=== PATIENT | male | born 1990 | race Caucasian/White ===

== ENCOUNTER 2023-10-14 09:46 | Outpatient (AMB) | payer BC, MEDICAID, SELFPAY ==
--- NOTE | 2023-10-14 09:49 | MHC.PC.OV ---
Vital Signs 10/14/23 09:50 Height 5 ft 10 in Weight 180 lb BMI 25.8 BP 106/66 Blood Pressure Location Lt brachial Position Sitting Respiration 12 Pulse 74 Pulse Source Pulse Oximeter Pulse Oximetry (%) 98 Oxygen Delivery Method Room Air Intake Visit Reasons: New patient-req physical Intake Note: Patient is here to establish care. Patient reports he would like a referral for a vasectomy. Patient reports he has allergies and would like allergy testing. Patient reports he is unsure if he has asthma and would like to see if there is a test for this as well. First Coat Operator Required: No Allergies No Known Allergies Allergy (Verified 10/14/23 09:55) Tobacco use date assessed: 10/14/23 Dental Screening Dental Screen Date: 10/14/23 Did you have a dental visit in the last 12 months?: No Did you have a dental problem in the last 6 months where you did not have access to dental care?: No Was dental information given to patient?: Yes HPI New patient-req physical HPI Details New patient Prior PCP:?Nhi Lobato Last office visit/CPE: 1 year Acute issue(s): Referral for vasectomy Allergies Wheeze -Notes he usually gets bronchitis every year. PMHx: Allergies, Anxiety, Hand Tremors SurgHx: None FHx: Mom: Healthy. Dad: Healthy. SocHx: Nonsmoker. EtOH Infreq. No drugs. PFSH Medical History (Updated 10/14/23 @ 11:00 by Will Terry) Depression Anxiety Tremor of both hands Sinusitis Social History (Updated 10/14/23 @ 09:59 by Stephany Jones [facility]) Household Members: Spouse and Children Household Members Other:: 5 kids 3 girls 2 boys Housing: Apartment Are you a primary caretaker grounds to a significant other at home: No Do you presently have visiting nurse or other home services: No 75 years or older and lives alone: No Alcohol intake: never Patient Tobacco Use Status: Never used Tobacco e-Cigarette/Vaping Use: Never Used Use of substances other than those prescribed or required for medical reasons: No Have you been hit, kicked, punched, or otherwise hurt by someone within the past year? 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 1. Little interest or pleasure in doing things: not at all 2. Feeling down, depressed, or hopeless: several days 3. Trouble falling or staying asleep, or sleeping too much: several days 4. Feeling tired or having little energy: not at all 5. Poor appetite or overeating: not at all 6. Feeling bad about yourself - or that you are a failure or have let yourself or your family down: not at all 7. Trouble concentrating on things, such as reading the newspaper or watching television: not at all 8. Moving or speaking so slowly that other people could have noticed. Or the opposite - being so fidgety or restless that you have been moving around a lot more than usual: not at all 9. Thoughts that you would be better off or of hurting yourself in some way: not at all Total score: 2 Depression Screening Interpretation: Negative Depression Screening Done: Yes 62453 - PHQ-9 Billing: Yes Source: Developed by Drs. Jean-Claude Paige, Kiarra Bacon, Ludin Dow and colleagues, with an educational melida from [employer]. Thrive Questionnaire Date Thrive assessed: 10/14/23 I am a: Patient What is your living situation today?: I have a steady place to live Within the past 12 months, did the food you bought not last and you didn't have the money to get more?: Sometimes True Within the past 12 months, did you worry whether your food would run out before you got money to buy more?: Sometimes True Do you have trouble paying for medicines?: No Do you have trouble getting transportation to medical appointments?: No Do you have trouble paying your heating and electricity bill?: No Do you have trouble taking care of your child, family member or friend?: No Do you have trouble with day-to-day activities such as bathing, preparing meals, shopping, managing finances, etc.?: No Are you currently unemployed and looking for a job?: No Are you interested in more education?: No Please select the resources that you would like help with: None Currently or been in a relationship where the following occur: no concerns reported AUDIT C Alcohol Use Questionnaire (AUDIT-C) 1. How often do you have a drink containing alcohol?: Never 3. How often do you have six or more drinks on one occasion?: Never Total Score: 0 KERRI-7 AMB Questionnaire KERRI-7 Date KERRI - 7 assessed: 10/14/23 Feeling nervous, anxious, or on edge: 1 = Several days Not being able to stop or control worryin = Not at all Worrying too much about different things: 0 = Not at all Trouble relaxin = Several days Being so restless that it is hard to sit still: 0 = Not at all Becoming easily annoyed or irritable: 1 = Several days Feeling afraid as if something awful might happen: 0 = Not at all Total KERRI-7 score (0-4 normal; 5-9 mild; 10-14 moderate; 15-21 severe): 3 Source: Developed by Drs. Jean-Claude Paige, Kiarra Bacon, Ludin Dow and colleagues, with an educational melida from [employer]. KERRI-7 Assessment Billing KERRI-7 Assessment Tool: KERRI-7 Assessment 53672 Review of Systems Const Denies chills, Denies fatigue, Denies fever(s), Denies headache(s) and Denies weakness ENT Denies dizziness and Denies headache(s) Card Denies chest pain, Denies lightheadedness, Denies dyspnea and Denies other (Palpitations) Resp Denies cough, Denies dyspnea, Denies wheezing and Denies other ( shortness of breath) Musc Denies numbness and Denies tingling Neuro Denies dizziness, Denies headache(s), Denies numbness, Denies tingling, Denies paresthesias and Denies weakness Psych Denies anxiety and Denies depression Endo Denies fatigue Aller/Immun Denies wheezing Physical exam (Primary Care) Vital Signs: Last Vital Signs Pulse 74 10/14/23 09:50 Resp 12 10/14/23 09:50 BP 106/66 10/14/23 09:50 Pulse Ox 98 10/14/23 09:50 Oxygen Delivery Method Room Air 10/14/23 09:50 BMI result Body Mass Index 25.8 Tobacco/Smoking Status: Tobacco use Status Tobacco use date assessed 10/14/23 10/14/23 10:03 Patient Tobacco Use Status Never used Tobacco 10/14/23 10:03 e-Cigarette/Vaping Use Never Used 10/14/23 10:03 PHQ-9: PHQ-9 Score PHQ-9: Total score 2 10/14/23 10:51 Depression Screening Interpretation: Negative Thrive Assessment: Date of Thrive Assessment Date Thrive assessed 10/14/23 10/14/23 10:03 Currently or been in a relationship where the following occur: no concerns reported Const General: no acute distress and well developed Nutritional Appearance: well nourished Orientation/consciousness: patient oriented x3 HENMT Head: Yes normocephalic and Yes atraumatic Eyes General: appearance normal, both eyes and all related structures Pupils: Equal, round and reactive pupils present EOM: EOMs intact bilaterally Resp Effort & Inspection: normal respiratory effort Auscultation: clear to auscultation bilaterally Cardio Rate: regular rate Rhythm: regular rhythm Heart sounds: S1 normal heart sound present, S2 normal heart sound present, no gallops, no murmurs and no rubs Neuro General: patient oriented x3 and gait normal Cranial nerves: Yes Equal, round and reactive pupils present Psych Affect: normal affect Assessment and Plan Assessment & Plan (1) Allergies: Code(s): T78.40XA - Allergy, unspecified, initial encounter Plan: Referred?to?immunology?for?allergy?testing?and?consideration?of?immunotherapy (2) Family planning: Code(s): Z30.09 - Encounter for other general counseling and advice on contraception Plan: Referred?to?Urology?for?consult?on?vasectomy (3) Wheeze: Code(s): R06.2 - Wheezing Plan: Lungs?are?clear?today Referred?for?pulmonary?function?testing (4) Depression with anxiety: Code(s): F41.8 - Other specified anxiety disorders Plan: History?of?depression/anxiety.??Currently?stable?and?not?on?medications. (5) Tremor of both hands: Code(s): R25.1 - Tremor, unspecified Plan: No?current?tremor Had?been?on?propranolol?and?atenolol?in?the?past. He?notes?that?atenolol?had?cause?depression?to?worsen. (6) Laboratory exam ordered as part of routine general medical examination: Code(s): Z00.00 - Encounter for general adult medical examination without abnormal findings Plan: Check?lab Orders: Orders TSH reflex Free T4 Today Z00.00 - Encounter for general adult medical examination without abnormal findings Comprehensive [place]. Panel Fast Today Z00.00 - Encounter for general adult medical examination without abnormal findings Lipid Panel Today Z00.00 - Encounter for general adult medical examination without abnormal findings Complete Blood Count Auto Diff Today Z00.00 - Encounter for general adult medical examination without abnormal findings Microalbumin, Random (w Creat) Today I10 - Essential (primary) hypertension UA and rflx microscopic Today Z00.00 - Encounter for general adult medical examination without abnormal findings PFT pulmonary function test Today R06.2 - Wheezing Referrals Allergy & Immunology Referral T78.40XA - Allergy, unspecified, initial encounter Urology Referral Z30.09 - Encounter for other general counseling and advice on contraception Coding Level of Care Code New Pt Level 3 (15265) Diagnoses Allergies T78.40XA Family planning Z30.09 Wheeze R06.2 Depression with anxiety F41.8 Tremor of both hands R25.1 Laboratory exam ordered as part of routine general medical examination Z00.00 Additional Codes KERRI-7 Assessment Billing - KERRI-7 Assessment Tool: KERRI-7 Assessment 90985 ([id number])
[2023-10-14 09:50] VITALS: BP 106/66; PULSE 74; RESP 12; O2SAT 98; BMI 25.8
== END 2023-10-14 11:08 | disposition home or self-care (01) ==
PROVIDERS: PCP Family Medicine; Visit Provider Family Medicine
DX: R06.2 Wheezing (principal); T78.40XA Allergy, unspecified, initial encounter; Z30.09 Encounter for other general counseling and advice on contraception; F41.8 Other specified anxiety disorders; R25.1 Tremor, unspecified
CPT/HCPCS: 99203

== ENCOUNTER 2023-10-14 11:11 | Outpatient (REF) | payer BC, SELFPAY ==
[2023-10-14 13:58] LABS: MANUAL DIFF FLAG NO
[2023-10-14 14:06] LABS: Basophils Percent Auto 0.6 % (0-2); Eosinophils Absolute Auto 0.3 X10*3/uL (0.0-0.4); Eosinophils Percent Auto 4.8 % (0-4); Hematocrit 45.4 % (42.0-52.0); Hemoglobin 14.9 g/dl (14.0-18.0); Imm Gran Abs Auto 0.02 X10*3/uL (0.00-0.03); Imm Gran Pct Auto 0.3 % (0.0-0.4); Lymphocytes Absolute Auto 1.9 X10*3/uL (1.2-4.9); Lymphocytes Percent Auto 26.9 % (20-40); Mean Corpuscular HGB Conc 32.8 g/dl (31.0-36.0); Mean Corpuscular Volume 82.2 fL (80.0-98.0); Mean Platelet Volume 10.2 fL (9.4-12.4); Monocytes Absolute Auto 0.5 X10*3/uL (0.1-1.2); Monocytes Percent Auto 6.9 % (2-11); Neutrophils Absolute Auto 4.3 x10*3/uL (2.0-8.3); Neutrophils Percent Auto 60.5 % (45-73); Platelet Count 233 X10*3/uL (160-400); Red Blood Count 5.52 X10*6/uL (4.60-5.80); Red Cell Distribution Width 13.4 % (11.0-16.0); White Blood Count 7.1 X10*3/uL (4.8-10.8)
[2023-10-14 14:15] LABS: Appearance Urine Clear; Color Urine Yellow; Glucose Urine UA Negative (Negative); Leukocyte Esterase Urine Negative (Negative); Nitrite Urine Negative (Negative); Urine Blood Negative (Negative); Urine Ketones Negative (Negative); Urine Protein Negative (Neg-Trace)
[2023-10-14 14:25] LABS: Alanine Aminotransferase 24 U/L (0-40); Albumin Level 4.5 g/dL (3.5-5.0); Alkaline Phosphatase 69 U/L (39-117); Anion Gap 11 (12-20); Aspartate Amino Transferase 19 U/L (5-37); Bilirubin Total 0.3 mg/dL (0.0-1.0); Blood Urea Nitrogen 20 mg/dL (9-16); Calcium 9.1 mg/dL (8.4-10.2); Carbon Dioxide 27 mmol/L (22-29); Chloride 107 mmol/L (96-108); Cholesterol 121 mg/dL (<200); Estimated Glomerular Filt Rate > 60; Glucose Fasting 100 mg/dL (60-99); HDL Cholesterol 47 mg/dL (>40); LDL Cholesterol Calculated 60 mg/dL (<100); Sodium 141 mmol/L (135-145); Total Protein 6.8 g/dL (6.5-8.0); Triglycerides 74 mg/dL (<150)
[2023-10-14 14:40] LABS: TSH reflex Free T4 0.89 uIU/mL (0.32-4.0)
[2023-10-14 14:47] LABS: Creatinine Urine 125.86 mg/dL; Microalbum/Creatinine Ratio Ur 8.7 ug/mg cr (<30)
[2023-10-15 03:46] LABS: Syphilis Screen Nonreactive (Nonreactive)
[2023-10-15 04:13] LABS: HBS Num1 155.05 mIU/mL (0-7.99); HBc Num1 0.06 S/CO (0.00-0.79); HBsAGNum1 0.27 S/CO (0.00-0.99); HIV AB/AG Nonreactive (Nonreactive); HIV Num 1 0.06 S/CO (0.00-0.99); Hepatitis B Core Antibody Nonreactive (Nonreactive); Hepatitis B Surface Antigen Negative (Negative); ~HepC Num1 0.08 S/CO (0.00-0.79); ~Hepatitis B Surface Antibody REACTIVE (Nonreactive); ~Hepatitis C Antibody Nonreactive (Nonreactive)
== END 2023-10-14 11:12 | disposition home or self-care (01) ==
LOC: HO.WFDLDS 11:11
PROVIDERS: Visit Provider Family Medicine
DX: Z00.00 Encounter for general adult medical examination without abnormal findings (principal); Z11.4 Encounter for screening for human immunodeficiency virus [HIV]; I10 Essential (primary) hypertension; Z20.2 Contact with and (suspected) exposure to infections with a predominantly sexual mode of transmission
CPT/HCPCS: 36415; 80053; 80061; 81003; 82043; 82570; 84443; 85025; 86704; 86706; 86780; 86803; 87340; 87389

== ENCOUNTER 2024-01-09 10:45 | Outpatient (AMB) | payer BC, SELFPAY ==
--- NOTE | 2024-01-09 10:50 | A.OFFVIS_ITS ---
Intake Intake Visit Reasons: Consult of vasectomy Intake Note: New Patient presents for initial visit for vasectomy consult Urology Medications: none Blood Thinner: none Children# 5 Expected Children# 0 Civil Litigation Attorney Required: No Accompanied by: Self / Same As Patient Allergies No Known Allergies Allergy (Verified 01/09/24 11:34) Medication List - Last Reconciled 01/09/24 by MARY Marshall No Known Home Meds HPI HPI Comments History of Present Illness Details Sal[place] is a pleasant 33-year-old male patient of Dr. Castro. He presents to the office today for - vasectomy evaluation Vasectomy evaluation The patient presents for vasectomy consultation.? He is currently He has fathered -?5 children with 1 single partner The youngest child is -oldest is 10 years old youngest is 1-year-old His partner is aware and permissive for a vasectomy Current form of control is condoms Current employment is [employer] The vasectomy may be complicated due to a history of no complicating issues. Patient education has been provided via AUA video, via printed information, risks of failure, recovery time, bruising and potential pain syndrome have been stressed Discussion today focused on the presence of vasectomy and the risks, benefits and alternatives that are available. Vasectomy as intended as a permanent form of control. Printed information and literature was provided to the patient. Overall there is a one in 2500 failure rate. This can occur at any time after vasectomy. Risks were discussed highlighting hematoma, spermatocele, epididymal congestion, development of sperm antibodies, and development of chronic pain estimated between 1-5%. The procedure was reviewed in detail. Anatomical diagrams of the male genitalia were used to explain the location of the vas deferens. The vas deferens will be transected, the proximal end will be cauterized, a metal clip would be applied to separate the 2 vas deferens ends. It was explained the procedure will be done in the office and takes approximately 10-15 minutes. Less common problems that arise with vasectomy include hematoma, bleeding, allergic reaction to anesthetic, epididymal infection, epididymal congestion, scrotal discomfort, spermatic leak, spermatic granuloma and the possibility of antisperm antibodies. He understands these risks and wishes to proceed. Consent was signed at the office today. He also understands that it takes 12 weeks for sperm to fully clear the system. He will need to provide a semen sample at 12 weeks and if this is not clear a 2nd sample at 16 weeks. Medical clearance to stop using protection will only be provided if he satisfies published criteria for sperm clearance. [facility] Medical History Staph infection Pneumonia Depression Anxiety Tremor of both hands Sinusitis Surgical History No pertinent past surgical history Family History Paternal Grandmother Asthma Maternal Grandmother Thyroid disease Paternal Grandfather Alcoholism Lung cancer Social History Household Members: Spouse and Children Household Members Other:: 5 kids 3 girls 2 boys Housing: Apartment Are you a primary post acute care nurse practitioner to a significant other at home: No Do you presently have visiting nurse or other home services: No 75 years or older and lives alone: No Alcohol intake: never Patient Tobacco Use Status: Never used Tobacco e-Cigarette/Vaping Use: Never Used service: No Current occupational status: employed 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 Current occupational exposures/hazards: No Sexual orientation: Straight/Heterosexual Gender identity: Male Cognitive needs: No Hearing needs: No Vision needs: No Review of Systems Const All systems reviewed & are unremarkable except as noted in HPI and below Physical Exam Const General: cooperative, comfortable, no acute distress, well developed, alert and awake Orientation/consciousness: patient oriented x3 HEENT Head: Yes normal to inspection, Yes normocephalic and Yes atraumatic Ears: hearing grossly normal bilaterally Eyes General: appearance normal, both eyes and all related structures Neck Neck: Yes normal visual inspection and Yes trachea midline Chest Chest palpation & inspection: normal inspection of the chest Resp Effort & Inspection: normal respiratory effort and able to speak in complete sentences Cardio Rate: regular rate GI Inspection: Yes normal to inspection General: Yes no CVA tenderness Male General Exam: Yes normal external exam Penis: normal penis and circumcised Meatus: meatus normal Scrotum: scrotum normal Testes: Testes normal Back/Spine/Pelvis Back: no CVA tenderness Skin General skin exam: no rashes or lesions noted Neuro General: patient oriented x3 Extrem General: Yes normal to inspection Psych Appearance: grossly normal and well kempt Mental Status: mental status grossly normal Speech and movement: Normal speech and movement present and Clear speech present Affect: normal affect Attitude: cooperative Thought process: Normal thought process present Thought content: Normal thought content present Results AMB Urinalysis, Automated UA Leukoctes 0 Galina/uL Last Edit by [employer] on 01/09/24 11:13 UA Nitrite Negative Last Edit by [employer] on 01/09/24 11:13 UA Urobilinogen 0.2 mg/dL Last Edit by [employer] on 01/09/24 11:13 UA Protein 15 mg/dL Last Edit by [employer] on 01/09/24 11:13 UA pH 6.0 Last Edit by [employer] on 01/09/24 11:13 UA Blood 0 Lamonte/uL Last Edit by [employer] on 01/09/24 11:13 UA Specific Leedey 1.020 Last Edit by [employer] on 01/09/24 11:13 UA Ketone Negative Last Edit by [employer] on 01/09/24 11:13 UA Bilirubin 0 mg/dL Last Edit by [employer] on 01/09/24 11:13 UA Glucose 0 mg/dL Last Edit by [employer] on 01/09/24 11:13 Results Reviewed Results Reviewed: Laboratory Last Values Urine pH (Auto) 6.0 01/09/24 11:11 Specific [place] (Auto) 1.020 01/09/24 11:11 Urine Protein (Auto) 15 mg/dL 01/09/24 11:11 Glucose (UA)(Auto) 0 mg/dL 01/09/24 11:11 Urine Ketones (Auto) Negative 01/09/24 11:11 Urine Blood (Auto) 0 Lamonte/uL 01/09/24 11:11 Urine Nitrite (Auto) Negative 01/09/24 11:11 Urine Bilirubin (Auto) 0 mg/dL 01/09/24 11:11 Urine Urobilinogen (Auto) 0.2 mg/dL 01/09/24 11:11 Leukocyte Esterase (Auto) 0 Galina/uL 01/09/24 11:11 Assessment & Plan Assessment & Plan (1) Anxiety about health: Code(s): R45.89 - Other symptoms and signs involving emotional state (2) Vasectomy evaluation: Code(s): Z30.09 - Encounter for other general counseling and advice on contraception Plan In office urinalysis results reviewed with the patient today; as noted above. Discussed risks and benefits of vasectomy; as noted and outlined above. All questions were answered. Discussed options for semen analysis via fellow or in office assessment and evaluation. Prescriptions provided and discussed appropriate use Will schedule for vasectomy with Dr. Clifton Follow-up per doctor's orders; or sooner with any issues, concerns, and or questions. Orders: Orders AMB Urinalysis Automated Today Z13.9 - Encounter for screening, unspecified Medications: New 2 diazepam (Valium) take one tab when arrive for procedure 2 mg PO DAILY 2 tabs 0RF anxiety R45.89 - Other symptoms and signs involving emotional state acetaminophen-codeine 300-30 mg 1 tab PO Q8H 9 tabs 0RF 3 days R45.89 - Other symptoms and signs involving emotional state Patient Instructions: The patient had an opportunity to ask questions regarding the treatment plan. All questions were answered. Physical exam, labs, and imaging were discussed and reviewed in detail. As well as risks, benefits, and discussion of treatment choices. No major barriers to understanding were identified. The patient expressed understanding and agreement with the above treatment plan. The patient was made aware they should contact our office by phone for worsening of their current condition, the appearance of new symptoms, or with any questions or concerns. Compliance is encouraged with any medications and follow up testing that is ordered. It is a privilege to be allowed the opportunity to participate in? your urological care.? Again, if you have any questions or concerns If you have any questions or concerns please do not hesitate to contact me. The office is [phone]. This note is constructed using voice recognition software. While every effort has been made to ensure accuracy deputy editor in chief errors may have been included. Yours sincerely, MARY Marshall Coding Level of Care Code New Pt Level 4 (78805) Diagnoses Anxiety about health R45.89 Vasectomy evaluation Z30.09
== END 2024-01-09 11:23 | disposition home or self-care (01) ==
PROVIDERS: PCP Family Medicine; Visit Provider Nurse Practitioner Family
DX: R45.89 Other symptoms and signs involving emotional state (principal); Z30.09 Encounter for other general counseling and advice on contraception; Z13.9 Encounter for screening, unspecified
CPT/HCPCS: 99204

== ENCOUNTER → 2024-01-09 10:45 | Outpatient (BNVA) | payer BC, SELFPAY | PROVIDERS: PCP Family Medicine; Visit Provider Nurse Practitioner Family | DX: Z30.09 Encounter for other general counseling and advice on contraception (principal); F41.8 Other specified anxiety disorders | CPT/HCPCS: 81003 ==

== ENCOUNTER 2024-01-15 10:43 | Outpatient (AMB) | payer BC, SELFPAY ==
--- NOTE | 2024-01-15 10:45 | A.OFFPC_ITS ---
Vital Signs 01/15/24 10:46 Height 5 ft 10 in Weight 175 lb BMI 25.1 BP 110/60 Blood Pressure Location Lt brachial Position Sitting Pulse 69 Pulse Source Pulse Oximeter Pulse Oximetry (%) 97 Oxygen Delivery Method Room Air Intake Visit Reasons: CPE with f/u labs and health maint Intake Note: Patient is here today for his physical today, and follow up on labs. Allergies No Known Allergies Allergy (Verified 01/15/24 10:47) Medication List - Last Reconciled 01/15/24 by Efren Castro MD acetaminophen-codeine 300-30 mg 1 tab PO Q8H 3 days diazepam (Valium) 2 mg PO DAILY Tobacco use date assessed: 01/15/24 Dental Screening Dental Screen Date: 10/14/23 HPI CPE with f/u labs and health maint HPI Details 33 y/o male presents for a CPE with f/u labs. Labs were drawn 10/14/23. Reviewed labs with pt. Borderline elevated fasting glucose of 100. Triglycerides 74. TC 121. LDL 60. HDL 47. A1c today 01/15/24 5.9%. HPI Comments History of Present Illness Details Documentation assistance for Efren Castro MD, was provided by Will Terry,? Fiscal Specialist on 01/15/2024 11:39 AM EST. I, Dr. Castro, have read, observed, and verified documentation. PFSH Medical History Staph infection Pneumonia Depression Anxiety Tremor of both hands Sinusitis Surgical History No pertinent past surgical history Family History Paternal Grandmother Asthma Maternal Grandmother Thyroid disease Paternal Grandfather Alcoholism Lung cancer Social History Household Members: Spouse and Children Household Members Other:: 5 kids 3 girls 2 boys Housing: Apartment Are you a primary healthcare administrative assistant to a significant other at home: No Do you presently have visiting nurse or other home services: No 75 years or older and lives alone: No Alcohol intake: never Patient Tobacco Use Status: Never used Tobacco e-Cigarette/Vaping Use: Never Used service: No Current occupational status: employed 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 Jean-Claude Paige, Kiarra Bacon, Ludin Dow and colleagues, with an educational melida from [employer]. Review of Systems Const Denies chills, Denies fatigue, Denies fever(s), Denies headache(s) and Denies weakness Eyes Denies change in vision ENT Denies dizziness, Denies headache(s), Denies hearing loss, Denies nasal congestion, Denies sinus pain, Denies sinus pressure and Denies sore throat Card Denies chest pain, Denies lightheadedness, Denies dyspnea and Denies other (palpitations) Resp Denies cough, Denies dyspnea and Denies wheezing GI Denies abdominal pain, Denies melena, Denies hematochezia, Denies change in bowel habits, Denies dyspepsia and Denies nausea Denies hematuria and Denies dysuria Musc Denies abnormal gait, Denies myalgias, Denies arthralgias, Denies numbness and Denies tingling Skin/Breast Denies rash, Denies unusual bruising and Denies wounds Neuro Denies abnormal gait, Denies dizziness, Denies headache(s), Denies memory loss, Denies numbness, Denies Sensory deficit (Neuro), Denies tingling and Denies weakness Psych Denies anxiety, Denies depression and Denies memory loss Endo Denies cold intolerance, Denies fatigue, Denies heat intolerance, Denies polydipsia and Denies polyuria Lalo/Lymph Denies easy bleeding and Denies easy bruising Aller/Immun Denies wheezing Physical exam (Primary Care) Vital Signs: Last Vital Signs Pulse 69 01/15/24 10:46 BP 110/60 01/15/24 10:46 Pulse Ox 97 01/15/24 10:46 Oxygen Delivery Method Room Air 01/15/24 10:46 BMI result Body Mass Index 25.1 Tobacco/Smoking Status: Tobacco use Status Tobacco use date assessed 01/15/24 01/15/24 10:49 Patient Tobacco Use Status Never used Tobacco 01/15/24 10:46 e-Cigarette/Vaping Use Never Used 01/15/24 10:46 Thrive Assessment: Date of Thrive Assessment Date Thrive assessed 10/14/23 01/15/24 10:46 Const General: no acute distress, well developed, alert and awake Nutritional Appearance: well nourished Orientation/consciousness: patient oriented x3 HENMT Head: Yes normocephalic and Yes atraumatic Ears: hearing grossly normal bilaterally and TM's normal bilaterally General nose exam: Normal external nose present and Normal nares present Mouth: Normal oral and palatal mucosa present and moist mucous membranes Teeth and gingiva: dentition normal Throat: Yes posterior oropharynx normal Eyes General: appearance normal, both eyes and all related structures Pupils: Equal, round and reactive pupils present and Pupil accommodation reflex normal EOM: EOMs intact bilaterally Neck Neck: Yes normal visual inspection, Yes no lymphadenopathy and Yes trachea midline Thyroid: Thyroid normal Carotids: no bruits Lymphatic: no lymphadenopathy noted Chest Chest palpation & inspection: normal inspection of the chest Resp Effort & Inspection: normal respiratory effort Auscultation: clear to auscultation bilaterally Cardio Rate: regular rate Rhythm: regular rhythm Heart sounds: S1 normal heart sound present, S2 normal heart sound present, no gallops, no murmurs and no rubs Bruits: no abdominal aortic bruits and no carotid bruits GI Palpation (GI): No Abdominal aortic bruit present, Soft to palpation, nontender, No hepatosplenomegaly present and No Rebound tenderness present Auscultation: normal bowel sounds General: Yes no CVA tenderness Back/Spine/Pelvis Back: no CVA tenderness Cervical Spine: cervical ROM normal and No Cervical spine tenderness Thoracic/Lumbar Spine: thoraco-lumbar ROM normal, No pain with thoraco-lumbar ROM, No thoracic spinal tenderness and No lumbar spinal tenderness Skin Lesions: no lesions Rashes: no rashes Trauma: no lacerations or abrasions Wounds: no wounds Nails: normal Neuro General: patient oriented x3 Cranial nerves: Yes Equal, round and reactive pupils present Cognition (Neuro): normal cognition Gait exam (Neuro): Normal gait present Motor exam (neuro): 5/5 motor strength present throughout Sensory Exam: No Sensory deficit (Neuro) Deep tendon reflexes (DTR's): Right patellar reflex intensity grade: 2+ and Left patellar reflex intensity grade: 2+ Extrem General: Yes normal to inspection and No edema Psych Appearance: grossly normal Affect: normal affect Attitude: cooperative Thought process: Normal thought process present Assessment and Plan Assessment & Plan (1) Adult general medical exam: Code(s): Z00.00 - Encounter for general adult medical examination without abnormal findings Plan: 33-year-old?male?presents?for?complete?physical?exam Exam?today?was?within?normal?limits Encouraged?good?hydration,?healthy?diet?with?active ?lifestyle?and?plenty?of?exercise (2) Allergies: Code(s): T78.40XA - Allergy, unspecified, initial encounter Plan: Had?referred?patient?to?immunology?in?October.??Says?that?when?he?called?them?th ey?did?not?have?the?referral Asking?the?office?to?check?on?the?status?of?this?referral (3) Screening for STD (sexually transmitted disease): Code(s): Z11.3 - Encounter for screening for infections with a predominantly sexual mode of transmission Plan: STD/STI?testing?negative (4) Pre-diabetes: Code(s): R73.03 - Prediabetes Plan: A1c?5.9%; pre?diabetes?range Encouraged?a?diet?low?in?sugars?and?starches, encouraged?weight?control?and?exercise Will?follow-up?in?about?3?months Coding Level of Care Code Est Pt Level 3 (95058) Est Pt Prev Care 18-39y(30583) Diagnoses Adult general medical exam Z00.00 Allergies T78.40XA Screening for STD (sexually transmitted disease) Z11.3 Pre-diabetes R73.03
[2024-01-15 10:46] VITALS: BP 110/60; PULSE 69; O2SAT 97; BMI 25.1
== END 2024-01-15 11:58 | disposition home or self-care (01) ==
PROVIDERS: PCP Family Medicine; Visit Provider Family Medicine
DX: Z00.00 Encounter for general adult medical examination without abnormal findings (principal); T78.40XA Allergy, unspecified, initial encounter; Z11.3 Encounter for screening for infections with a predominantly sexual mode of transmission; R73.03 Prediabetes
CPT/HCPCS: 83036; 99213; 99395

== ENCOUNTER 2024-04-14 11:37 | Outpatient (AMB) | payer BC, SELFPAY ==
[2024-04-14 11:46] VITALS: BP 108/60; PULSE 80; RESP 14; TEMP 36.1; O2SAT 97; BMI 23.9
--- NOTE | 2024-04-14 11:46 | A.OFFPC_ITS ---
Vital Signs 04/14/24 11:46 Height 5 ft 10 in Weight 166 lb 8 oz BMI 23.9 BP 108/60 Blood Pressure Location Rt brachial Position Sitting Respiration 14 Pulse 80 Pulse Source Pulse Oximeter Temp 97 F Temp Source Temporal Artery Scan Pulse Oximetry (%) 97 Oxygen Delivery Method Room Air Intake Visit Reasons: f/u pre?diabetes Quality Assurance Coordinator Required: No Accompanied by: Self / Same As Patient Allergies No Known Allergies Allergy (Verified 04/14/24 11:54) Medication List - Last Reconciled 04/14/24 by Efren Castro MD No Known Home Meds Tobacco use date assessed: 01/15/24 Dental Screening Dental Screen Date: 10/14/23 HPI f/u pre?diabetes HPI Details 33 y/o male presents to f/u pre-diabetes . Last A1c 01/15/24 5.9%. Had encouraged diet low in sugars and starches. A1c today 04/14/24 is 5.8%. Has lost some weight since last office visit in January. Pt notes he walks every day. PFSH Medical History Staph infection Pneumonia Depression Anxiety Tremor of both hands Sinusitis Surgical History No pertinent past surgical history Family History Paternal Grandmother Asthma Maternal Grandmother Thyroid disease Paternal Grandfather Alcoholism Lung cancer Social History Household Members: Spouse and Children Household Members Other:: 5 kids 3 girls 2 boys Housing: Apartment Are you a primary day care teacher to a significant other at home: No Do you presently have visiting nurse or other home services: No 75 years or older and lives alone: No Alcohol intake: never Patient Tobacco Use Status: Never used Tobacco e-Cigarette/Vaping Use: Never Used service: No Current occupational status: employed 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 Jean-Claude Paige, Kiarra Bacon, Ludin Dow and colleagues, with an educational melida from [employer]. Review of Systems Const Denies chills, Denies fatigue, Denies fever(s), Denies headache(s) and Denies weakness ENT Denies dizziness and Denies headache(s) Card Denies dyspnea Resp Denies cough, Denies dyspnea, Denies wheezing and Denies other (shortness of breath) Musc Denies numbness and Denies tingling Neuro Denies dizziness, Denies headache(s), Denies numbness, Denies tingling and Denies weakness Psych Denies anxiety and Denies depression Endo Denies fatigue Aller/Immun Denies wheezing Physical exam (Primary Care) Vital Signs: Last Vital Signs Temp 97 F 04/14/24 11:46 Pulse 80 04/14/24 11:46 Resp 14 04/14/24 11:46 BP 108/60 04/14/24 11:46 Pulse Ox 97 04/14/24 11:46 Oxygen Delivery Method Room Air 04/14/24 11:46 BMI result Body Mass Index 23.9 Tobacco/Smoking Status: Tobacco use Status Tobacco use date assessed 01/15/24 04/14/24 11:50 Patient Tobacco Use Status Never used Tobacco 04/14/24 11:50 e-Cigarette/Vaping Use Never Used 04/14/24 11:50 Thrive Assessment: Date of Thrive Assessment Date Thrive assessed 10/14/23 04/14/24 11:50 Const General: well developed; No acute distress Nutritional Appearance: well nourished Orientation/consciousness: patient oriented x3 HENMT Head: Yes normocephalic and Yes atraumatic Eyes General: appearance normal, both eyes and all related structures Pupils: Equal, round and reactive pupils present EOM: EOMs intact bilaterally Resp Effort & Inspection: normal respiratory effort Neuro General: patient oriented x3 and gait normal Cranial nerves: Yes Equal, round and reactive pupils present Psych Affect: normal affect Assessment and Plan Assessment & Plan (1) Pre-diabetes: Code(s): R73.03 - Prediabetes Plan: A1c?has?improved?fr om?5.9%?to?5.8%?with?a?decrease?in?weight?and?watching?sugars?and?starches. Encouraged?ongoing?diet?low?in?sugars?and?starches Encouraged?exercise?and?weight?control Coding Level of Care Code Est Pt Level 3 (70150) Diagnoses Pre-diabetes R73.03
== END 2024-04-14 12:10 | disposition home or self-care (01) ==
PROVIDERS: PCP Family Medicine; Visit Provider Family Medicine
DX: R73.03 Prediabetes (principal)
CPT/HCPCS: 99213

== ENCOUNTER 2024-07-30 15:44 | Outpatient (REF) | payer BC, SELFPAY ==
[2024-07-30 13:39] VITALS: PULSE 73; RESP 16; O2SAT 98
--- NOTE | 2024-07-30 15:48 | PFT_ITS ---
Flows: FEV1: 96 % of predicted at 3.92 L FVC: 94 % of predicted at 4.65 L FEV1/FVC: 84 % Bronchodilator response: Present Volumes: Total lung capacity: 94 % of predicted at 6.32 L Residual volume: 115 % of predicted at 1.68 L Slow vital capacity: 88 % of predicted at 4.64 L Expiratory reserve volume: 112 % of predicted at 1.68 L Diffusion capacity: Normal Impression: No obstructive or restrictive ventilatory defect. Positive bronchodilator response. MTDD
== END 2024-07-30 15:45 | disposition home or self-care (01) ==
LOC: HO.RESP 15:44
PROVIDERS: PCP Family Medicine; Visit Provider Family Medicine
DX: R06.2 Wheezing (principal)
CPT/HCPCS: 94010; 94640; 94727; 94729

== ENCOUNTER → 2024-07-30 15:48 | Outpatient (BNV) | payer BC, SELFPAY | PROVIDERS: PCP Family Medicine; Visit Provider Internal Medicine Pulmonary Disease | DX: R06.2 Wheezing (principal) | CPT/HCPCS: 94060; 94727; 94729 ==

== ENCOUNTER 2025-05-13 15:49 | Outpatient (AMB) | payer BC, SELFPAY ==
--- OUTSIDE RECORDS SUMMARY | 2025-05-13 15:52 | XMS_ITS ---
Author Name [facility] Organization Unknown History of Medication Use Medication Directions Dispensed Refills Start Date End Date Stat us fluticasone (FloNASE) 50 mcg/spray nasal spray 1 spray into each nostril daily. 10/13/2022 active proMETHAZINE-dextrome thorphan (proMETHAZINE-DM) 6.25-15 MG/5ML syrup Take 5 mL by mouth 4 times daily (every 6 hours) as needed for cough. 08/24/2022 active benzonatate (TESSALON) 200 MG capsule Take 1 capsule (200 mg total) by mouth 3 (three) times a day as needed for cough. 07/30/2022 10/13/2022 active fluticasone (FloNASE) 50 mcg/spray nasal spray 2 sprays into each nostril daily. 07/30/2022 10/13/2022 active ctphbo-eqelldncj-uwbu esium sulfates (Suprep Bowel Prep Kit) 17.5-3.13-1.6 GM/177ML Solution solution Follow directions provided by physician's office. 09/05/2021 active Lactobacillus ([employer]S Acidophilus Probiotic) 0.5 MG Tab 07/12/2021 act patricia Ascorbic Acid (VITAMIN C PO) Take by mouth. active zinc gluconate 50 MG tablet Take 50 mg by mouth daily. active Allergies Allergen Reaction Severity Comment Documented Date Source Statu s OTHER OTHER (SEE COMMENTS) Fresh fruit; apples, bananas, berries; causes itchy throat 07/12/2021 [facility] active MIXED RAGWEED UNKNOWN/PATIENT AND FAMILY UNABLE TO DEFINE 11/02/2018 [facility] active CAT HAIR EXTRACT UNKNOWN/PATIENT AND FAMILY UNABLE TO DEFINE [facility] LATEX UNKNOWN/PATIENT AND FAMILY UNABLE TO DEFINE [facility] Problems Problem Status Onset Date Problem Type Date of Resoluti on Source Strep pharyngitis active EncounterDiagnosisAct [facility] Left sided abdominal pain active 2021-09-05 ProblemAct [facility] Encounters Encounter Type Encounter Reason Primary Diagnosis Location Date Ambulatory Acute pharyngiti s, unspecified [facility] 02/23/2023 Ambulatory Other specified disorders of eustachian tube, bilateral [facility] 10/13/2022 Ambulatory Bronchitis, not specified as acute or chronic [facility] 08/24/2022 [facility]ulatory [facility] 07/30/2022 Ambulatory Bronchitis, not specified as acute or chronic [facility] 07/30/2022 Ambulatory Abdominal Pain [facility] 09/05/2021 Care Team Organization Name Specialty Phone Email Start Date End [facility] 08/07/2023 024 [facility] 06/27/2023 024 [facility] 03/08/2023 [facility] 08/24/2022 08/24/2022 [facility] 08/24/2022 [facility] 08/07/2022 [facility] 09/05/2021 10/13/2022 [facility]
--- NOTE | 2025-05-13 16:04 | MHC.PC.OV ---
Vital Signs 05/13/25 16:07 Height 5 ft 10 in Weight 161 lb 8 oz BMI 23.2 BP 96/66 Blood Pressure Location Rt brachial Position Sitting Respiration 12 Pulse 72 Pulse Source Pulse Oximeter Temp 98.2 F Temp Source Oral Pulse Oximetry (%) 96 Oxygen Delivery Method Room Air Intake Visit Reasons: CPE Intake Note: Physical Traffic Engineer Required: No Allergies No Known Allergies Allergy (Verified 05/13/25 16:06) Tobacco use date assessed: 05/13/25 Dental Screening Dental Screen Date: 05/13/25 Did you have a dental visit in the last 12 months?: No Did you have a dental problem in the last 6 months where you did not have access to dental care?: No Was dental information given to patient?: Patient declined HPI HPI Comments History of Present Illness Details The patient is a 34 year old male with past medical history of asthma, prediabetes presenting for annual exam Patient had PFTs for possible asthma. He had normal pulmonary function with positive bronchodilator response Dental UTD ROS CONSTITUTIONAL: Denies weight loss, fever and chills. HEENT: Denies changes in vision and hearing. RESPIRATORY: Denies SOB and cough. CV: Denies palpitations and CP GI: Denies abdominal pain, nausea, vomiting and diarrhea. : Denies dysuria and urinary frequency. MSK: Denies new myalgia and joint pain. SKIN: Denies rash and pruritus. NEUROLOGICAL: Denies headache PSYCHIATRIC: Denies recent changes in mood. PHYSICAL EXAM: GENERAL: Alert and oriented x 3. NAD EYES: EOMI. Anicteric. HENT: Moist mucous membranes. No scleral icterus. No cervical lymphadenopathy. LUNGS: Clear to auscultation bilaterally. CARDIOVASCULAR: Regular rate and rhythm. No murmur. No JVD. ABDOMEN: Soft, non-tender +bs EXTREMITIES: No edema. Non-tender. SKIN: No rashes or lesions. Warm. NEUROLOGIC: No focal neurological deficits. CN II-XII grossly intact PSYCHIATRIC: Cooperative. Appropriate mood and affect PFSH Medical History Staph infection Pneumonia Depression Anxiety Tremor of both hands Sinusitis Surgical History No pertinent past surgical history Family History Paternal Grandmother Asthma Maternal Grandmother Thyroid disease Paternal Grandfather Alcoholism Lung cancer Social History Household Members: Spouse and Children Household Members Other:: 5 kids 3 girls 2 boys Housing: Apartment Are you a primary plant health care technician to a significant other at home: No Do you presently have visiting nurse or other home services: No 75 years or older and lives alone: No Alcohol intake: never Patient Tobacco Use Status: Never used Tobacco e-Cigarette/Vaping Use: Never Used service: No Current occupational status: employed 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 1. Little interest or pleasure in doing things: not at all 2. Feeling down, depressed, or hopeless: not at all 3. Trouble falling or staying asleep, or sleeping too much: not at all 4. Feeling tired or having little energy: not at all 5. Poor appetite or overeating: not at all 6. Feeling bad about yourself - or that you are a failure or have let yourself or your family down: not at all 7. Trouble concentrating on things, such as reading the newspaper or watching television: not at all 8. Moving or speaking so slowly that other people could have noticed. Or the opposite - being so fidgety or restless that you have been moving around a lot more than usual: not at all 9. Thoughts that you would be better off or of hurting yourself in some way: not at all Total score: 0 Depression Screening Interpretation: Negative Depression Screening Done: Yes 02991 - PHQ-9 Billing: Yes Source: Developed by Drs. Jean-Claude Paige, Kiarra Bacon, Ludin Dow and colleagues, with an educational melida from [employer] 3. Thrive Questionnaire Date Thrive assessed: 05/08/25 I am a: Patient What is your living situation today?: I have a steady place to live Within the past 12 months, did the food you bought not last and you didn't have the money to get more?: Never true Within the past 12 months, did you worry whether your food would run out before you got money to buy more?: Never true Do you have trouble paying for medicines?: No Do you have trouble getting transportation to medical appointments?: No Do you have trouble paying your heating and electricity bill?: No Do you have trouble taking care of your child, family member or friend?: No Do you have trouble with day-to-day activities such as bathing, preparing meals, shopping, managing finances, etc.?: No Are you currently unemployed and looking for a job?: No Are you interested in more education?: No Please select the resources that you would like help with: None Currently or been in a relationship where the following occur: No concerns reported THRIVE Score: 0 AUDIT C Alcohol Use Questionnaire (AUDIT-C) 1. How often do you have a drink containing alcohol?: Monthly or less 2. How many drinks containing alcohol do you have on a typical day when you are drinking?: 1 or 2 3. How often do you have six or more drinks on one occasion?: Never Total Score: 1 KERRI-7 AMB Questionnaire KERRI-7 Date KERRI - 7 assessed: 10/14/23 Feeling nervous, anxious, or on edge: 0 = Not at all Not being able to stop or control worryin = Not at all Worrying too much about different things: 0 = Not at all Trouble relaxin = Not at all Being so restless that it is hard to sit still: 0 = Not at all Becoming easily annoyed or irritable: 1 = Several days Feeling afraid as if something awful might happen: 0 = Not at all Total KERRI-7 score (0-4 normal; 5-9 mild; 10-14 moderate; 15-21 severe): 1 Source: Developed by Drs. Jean-Claude Paige, Kiarra Bacon, Ludin Dow and colleagues, with an educational melida from [employer] 3. Physical exam (Primary Care) Vital Signs: Last Vital Signs Temp 98.2 F 05/13/25 16:07 Pulse 72 05/13/25 16:07 Resp 12 05/13/25 16:07 BP 96/66 05/13/25 16:07 Pulse Ox 96 05/13/25 16:07 Oxygen Delivery Method Room Air 05/13/25 16:07 BMI result Body Mass Index 23.2 Tobacco/Smoking Status: Tobacco use Status Tobacco use date assessed 05/13/25 05/13/25 16:09 Patient Tobacco Use Status Never used Tobacco 05/13/25 16:06 e-Cigarette/Vaping Use Never Used 05/13/25 16:06 PHQ-9: PHQ-9 Score PHQ-9: Total score 0 05/13/25 16:09 Depression Screening Interpretation: Negative Thrive Assessment: Date of Thrive Assessment Date Thrive assessed 05/08/25 05/13/25 16:06 Currently or been in a relationship where the following occur: No concerns reported Coding Level of Care Code Est Pt Prev Care 18-39y(34034) Diagnoses Physical exam Z00.00 Pre-diabetes R73.03 Elevated fasting glucose R73.01 Screening for hyperlipidemia Z13.220 Additional Codes PHQ-9 - 77768 - PHQ-9 Billing: Yes ([id number]) Assessment & Plan Assessment & Plan (1) Physical exam: Code(s): Z00.00 - Encounter for general adult medical examination without abnormal findings (2) Pre-diabetes: Code(s): R73.03 - Prediabetes Category: Medical (3) Elevated fasting glucose: Code(s): R73.01 - Impaired fasting glucose Category: Medical (4) Screening for hyperlipidemia: Code(s): Z13.220 - Encounter for screening for lipoid disorders Category: Medical Plan Physical Exam Interval history reviewed preventive measures for age discussed. labs ordered RAD-stable on current medications Orders: Orders Comprehensive Met. Panel 05/13/25 F41.8 - Other specified anxiety disorders, R73.03 - Prediabetes, Z13.0 - Encounter for screening for diseases of the blood and blood-forming organs and certain disorders involving the immune mechanism, Z13.220 - Encounter for screening for lipoid disorders Hemoglobin A1c 05/13/25 F41.8 - Other specified anxiety disorders, R73.03 - Prediabetes, Z13.0 - Encounter for screening for diseases of the blood and blood-forming organs and certain disorders involving the immune mechanism, Z13.220 - Encounter for screening for lipoid disorders Complete Blood Count Auto Diff 05/13/25 F41.8 - Other specified anxiety disorders, R73.03 - Prediabetes, Z13.0 - Encounter for screening for diseases of the blood and blood-forming organs and certain disorders involving the immune mechanism, Z13.220 - Encounter for screening for lipoid disorders Lipid Panel 05/13/25 F41.8 - Other specified anxiety disorders, R73.03 - Prediabetes, Z13.0 - Encounter for screening for diseases of the blood and blood-forming organs and certain disorders involving the immune mechanism, Z13.220 - Encounter for screening for lipoid disorders Medications: Refilled albuterol sulfate 90 mcg/actuation 2 puffs inhalation Q4-6H PRN 8.5 grams 3RF shortness of breath or wheezing 30 days
[2025-05-13 16:07] VITALS: BP 96/66; PULSE 72; RESP 12; TEMP 36.8; O2SAT 96; BMI 23.2
== END 2025-05-13 16:36 | disposition home or self-care (01) ==
LOC: HO.HMCFM 15:50
PROVIDERS: PCP Family Medicine; Visit Provider Internal Medicine
DX: Z00.00 Encounter for general adult medical examination without abnormal findings (principal); R73.03 Prediabetes; R73.01 Impaired fasting glucose; Z13.220 Encounter for screening for lipoid disorders

== ENCOUNTER → 2025-05-13 15:49 | Outpatient (BNVA) | payer BC, SELFPAY | PROVIDERS: PCP Family Medicine; Visit Provider Internal Medicine | DX: Z00.00 Encounter for general adult medical examination without abnormal findings (principal); R73.03 Prediabetes; R73.01 Impaired fasting glucose; Z13.31 Encounter for screening for depression | CPT/HCPCS: 96127 ==

== ENCOUNTER 2025-05-16 07:48 | Outpatient (REF) | payer BC, SELFPAY ==
[2025-05-16 11:29] LABS: MANUAL DIFF FLAG NO
[2025-05-16 11:33] LABS: Hematocrit 46.0 % (42.0-52.0); Hemoglobin 14.4 g/dl (14.0-18.0); Imm Gran Abs Auto 0.02 X10*3/uL (0.00-0.03); Imm Gran Pct Auto 0.3 % (0.0-0.4); Lymphocytes Absolute Auto 1.5 X10*3/uL (1.2-4.9); Mean Corpuscular HGB Conc 31.3 g/dl (31.0-36.0); Mean Corpuscular Hemoglobin 26.3 pg (27.0-33.0); Mean Corpuscular Volume 84.1 fL (80.0-98.0); NRBC Abs Auto 0.000 X10*3/uL (0.0-0.012); NRBC Pct Auto 0.0 /100WBC (0.0-0.2); Platelet Count 205 X10*3/uL (160-400); Red Blood Count 5.47 X10*6/uL (4.60-5.80); White Blood Count 5.9 X10*3/uL (4.8-10.8)
[2025-05-16 12:08] LABS: Alanine Aminotransferase 20 U/L (0-40); Albumin Level 4.5 g/dL (3.5-5.0); Alkaline Phosphatase 60 U/L (39-117); Anion Gap 11 (12-20); Aspartate Amino Transferase 30 U/L (5-37); Blood Urea Nitrogen 16 mg/dL (9-16); Calcium 8.5 mg/dL (8.4-10.2); Carbon Dioxide 27 mmol/L (22-29); Chloride 108 mmol/L (96-108); Cholesterol 117 mg/dL (<200); Estimated Glomerular Filt Rate > 60; HDL Cholesterol 43 mg/dL (>40); Potassium 4.3 mmol/L (3.3-5.1); Sodium 142 mmol/L (135-145); Total Protein 6.4 g/dL (6.5-8.0); Triglycerides 68 mg/dL (<150)
[2025-05-16 12:25] LABS: Hemoglobin A1C 152.6428 umol/L; Total Hemoglobin (HGBA1C) 3826.7773 umol/L
== END 2025-05-16 07:49 | disposition home or self-care (01) ==
LOC: HO.WFDLDS 07:48
PROVIDERS: Visit Provider Internal Medicine
DX: Z13.220 Encounter for screening for lipoid disorders (principal); Z13.0 Encounter for screening for diseases of the blood and blood-forming organs and certain disorders involving the immune mechanism; F41.8 Other specified anxiety disorders; R73.03 Prediabetes; Z13.6 Encounter for screening for cardiovascular disorders
CPT/HCPCS: 36415; 80053; 80061; 83036; 85025